=== PATIENT | male | born 1975 | race Caucasian/White ===

== ENCOUNTER 2018-02-21 10:35 | Observation (INO) | payer BC, OTHER ==
--- NOTE | 2018-02-21 10:51 | ED ---
General Adult HPI - General Chief complaint: Arrhythmia/Palpitations Stated complaint: AFIB Time Seen by Provider: 02/21/18 10:45 Source: patient, RN notes reviewed Mode of arrival: wheelchair Limitations: no limitations - History of Present Illness Initial comments: Patient is a pleasant 42-year-old male presenting to the emergency Department with palpitations. Onset of symptoms was around 4 AM. Patient felt his heart skipping going fast. Patient does have a history of similar symptoms previously associated with atrial fibrillation, last was around 1 year ago. Patient states symptoms did last for a couple hours however now have resolved. Patient only has some mild heaviness. Patient does admit to having some mild shortness of breath. No nausea. No diaphoresis. Patient is not on any medication at this time for A. fib. No leg pain or leg swelling. - Related Data Home Medications Medication Instructions Recorded Confirmed Ibuprofen [Motrin Ib] 400 mg PO Q6H PRN 02/21/18 02/21/18 Lansoprazole [Prevacid] 15 mg PO DAILY 02/21/18 02/21/18 Allergies Allergy/AdvReac Type Severity Reaction Status Date / Time No Known Allergies Allergy Verified 02/21/18 11:15 Review of Systems ROS Statement: Those systems with pertinent positive or pertinent negative responses have been documented in the HPI. ROS Other: All systems not noted in ROS Statement are negative. Constitutional: Denies: fever Eyes: Denies: eye pain ENT: Denies: ear pain Respiratory: Reports: dyspnea. Denies: cough Cardiovascular: Reports: chest pain, palpitations Endocrine: Reports: fatigue Gastrointestinal: Denies: abdominal pain, nausea Genitourinary: Denies: dysuria Musculoskeletal: Denies: back pain Skin: Denies: rash Neurological: Denies: weakness Past Medical History Past Medical History: Atrial Fibrillation, Asthma, GERD/Reflux, Pneumonia Additional Past Medical History / Comment(s): a-fib, ARTHRITIS, chronic back pain pinched nerves in neck History of Any Multi-Drug Resistant Organisms: None Reported Past Surgical History: Orthopedic Surgery Additional Past Surgical History / Comment(s): rt shoulder,lt knee Past Anesthesia/Blood Transfusion Reactions: No Reported Reaction Past Psychological History: No Psychological Hx Reported Smoking Status: Current every day smoker Past Alcohol Use History: Rare Past Drug Use History: None Reported - Past Family History Father Family Medical History: Diabetes Mellitus Additional Family Medical History / Comment(s): DAD IS 61 Mother Family Medical History: Unable to Obtain Additional Family Medical History / Comment(s): MOM IS 58 HX UNK General Exam Limitations: no limitations General appearance: alert, in no apparent distress Head exam: Present: atraumatic Eye exam: Present: normal appearance, PERRL ENT exam: Present: normal oropharynx Neck exam: Present: normal inspection Respiratory exam: Present: normal lung sounds bilaterally Cardiovascular Exam: Present: regular rate, normal rhythm Expanded Peripheral pulses: 2+: Radial (R), Radial (L), Posterior Tibialis (R), Posterior Tibialis (L) GI/Abdominal exam: Present: soft. Absent: tenderness Extremities exam: Present: normal inspection. Absent: pedal edema, calf tenderness Neurological exam: Present: alert Psychiatric exam: Present: normal affect, normal mood Skin exam: Present: normal color Course Vital Signs 02/21/18 02/21/18 02/21/18 10:36 10:55 12:12 Temperature 97.9 F 97.8 F Pulse Rate 87 66 Pulse Rate [ 75 Shear Setter ] Respiratory 20 18 Rate Blood Pressure 139/88 130/88 O2 Sat by Pulse 99 98 Oximetry 02/21/18 12:27 Temperature Pulse Rate 68 Pulse Rate [ Shear Setter ] Respiratory 18 Rate Blood Pressure 127/88 O2 Sat by Pulse 97 Oximetry EKG Findings - EKG Comments: EKG Findings:: Normal sinus rhythm 78. CT 166. QRS 82. QT 394. QTC 449. Normal axis. Normal QRS. No acute ST change. Medical Decision Making - Medical Decision Making Patient reevaluated and resting comfortably in bed. Patient still has some chest heaviness. Patient remains in normal sinus rhythm. Case was discussed in detail with Dr. Dumont, who will admit his patient, no consults at this time. - Lab Data Result diagrams: 02/21/18 10:45 02/21/18 10:45 Lab Results 02/21/18 02/21/18 02/21/18 Range/Units 10:45 10:45 10:45 WBC 5.3 (3.8-10.6) k/uL RBC 5.14 (4.30-5.90) m/uL Hgb 15.7 (13.0-17.5) gm/dL Hct 45.8 (39.0-53.0) % MCV 89.1 (80.0-100.0) fL MCH 30.5 (25.0-35.0) pg MCHC 34.2 (31.0-37.0) g/dL RDW 13.3 (11.5-15.5) % Plt Count 327 (150-450) k/uL Neutrophils % 64 % Lymphocytes % 28 % Monocytes % 5 % Eosinophils % 2 % Basophils % 0 % Neutrophils # 3.4 (1.3-7.7) k/uL Lymphocytes # 1.5 (1.0-4.8) k/uL Monocytes # 0.3 (0-1.0) k/uL Eosinophils # 0.1 (0-0.7) k/uL Basophils # 0.0 (0-0.2) k/uL PT (9.0-12.0) sec INR (<1.2) APTT (22.0-30.0) sec Sodium 137 (137-145) mmol/L Potassium 4.6 (3.5-5.1) mmol/L Chloride 105 (98-107) mmol/L Carbon Dioxide 25 (22-30) mmol/L Anion Gap 7 mmol/L BUN 12 (9-20) mg/dL Creatinine 0.79 (0.66-1.25) mg/dL Est GFR (CKD-EPI)AfAm >90 (>60 ml/min/1.73 sqM) Est GFR (CKD-EPI)NonAf >90 (>60 ml/min/1.73 sqM) Glucose 97 (74-99) mg/dL Calcium 9.1 (8.4-10.2) mg/dL Magnesium 1.9 (1.6-2.3) mg/dL Total Bilirubin 0.9 (0.2-1.3) mg/dL AST 39 (17-59) U/L ALT 36 (21-72) U/L Alkaline Phosphatase 51 (38-126) U/L Total Creatine Kinase 117 (55-170) U/L CK-MB (CK-2) 0.7 (0.0-2.4) ng/mL CK-MB (CK-2) Rel Index 0.6 Troponin I <0.012 (0.000-0.034) ng/mL Total Protein 6.1 L (6.3-8.2) g/dL Albumin 3.7 (3.5-5.0) g/dL 02/21/18 Range/Units 10:45 WBC (3.8-10.6) k/uL RBC (4.30-5.90) m/uL Hgb (13.0-17.5) gm/dL Hct (39.0-53.0) % MCV (80.0-100.0) fL MCH (25.0-35.0) pg MCHC (31.0-37.0) g/dL RDW (11.5-15.5) % Plt Count (150-450) k/uL Neutrophils % % Lymphocytes % % Monocytes % % Eosinophils % % Basophils % % Neutrophils # (1.3-7.7) k/uL Lymphocytes # (1.0-4.8) k/uL Monocytes # (0-1.0) k/uL Eosinophils # (0-0.7) k/uL Basophils # (0-0.2) k/uL PT 9.7 (9.0-12.0) sec INR 1.0 (<1.2) APTT 22.6 (22.0-30.0) sec Sodium (137-145) mmol/L Potassium (3.5-5.1) mmol/L Chloride (98-107) mmol/L Carbon Dioxide (22-30) mmol/L Anion Gap mmol/L BUN (9-20) mg/dL Creatinine (0.66-1.25) mg/dL Est GFR (CKD-EPI)AfAm (>60 ml/min/1.73 sqM) Est GFR (CKD-EPI)NonAf (>60 ml/min/1.73 sqM) Glucose (74-99) mg/dL Calcium (8.4-10.2) mg/dL Magnesium (1.6-2.3) mg/dL Total Bilirubin (0.2-1.3) mg/dL AST (17-59) U/L ALT (21-72) U/L Alkaline Phosphatase (38-126) U/L Total Creatine Kinase (55-170) U/L CK-MB (CK-2) (0.0-2.4) ng/mL CK-MB (CK-2) Rel Index Troponin I (0.000-0.034) ng/mL Total Protein (6.3-8.2) g/dL Albumin (3.5-5.0) g/dL - Radiology Data Radiology results: image reviewed (Chest x-ray shows no acute process.) Disposition Clinical Impression: Palpitations, Chest pain Disposition: ADMITTED IP TO THIS HOSP Is patient prescribed a controlled substance at d/c from ED?: No Referrals: Bjorn Dumont MD [Primary Care Provider] - 1-2 days Decision Time: 12:41
[2018-02-21 11:07] LABS: Basophils % (A) 0 %; Eosinophils # (A) 0.1 k/uL (0-0.7); Eosinophils % (A) 2 %; HCT 45.8 % (39.0-53.0); HGB 15.7 gm/dL (13.0-17.5); Lymphocytes # (A) 1.5 k/uL (1.0-4.8); Lymphocytes % (A) 28 %; MCH 30.5 pg (25.0-35.0); MCHC 34.2 g/dL (31.0-37.0); MCV 89.1 fL (80.0-100.0); Mean Platelet Volume 6.5; Monocytes # (A) 0.3 k/uL (0-1.0); Monocytes % (A) 5 %; Neutrophils # (A) 3.4 k/uL (1.3-7.7); Neutrophils % (A) 64 %; Platelet Count 327 k/uL (150-450); RBC 5.14 m/uL (4.30-5.90); RDW 13.3 % (11.5-15.5); WBC 5.3 k/uL (3.8-10.6)
[2018-02-21 11:14] LABS: Partial Thromboplastin Time 22.6 sec (22.0-30.0); Prothrombin Time 9.7 sec (9.0-12.0)
[2018-02-21 11:25] LABS: Albumin 3.7 g/dL (3.5-5.0); Anion Gap 7 mmol/L; Calcium 9.1 mg/dL (8.4-10.2); Carbon Dioxide 25 mmol/L (22-30); Chloride 105 mmol/L (98-107); Glucose 97 mg/dL (74-99); Sodium 137 mmol/L (137-145); Total Bilirubin 0.9 mg/dL (0.2-1.3); Total Protein 6.1 g/dL (6.3-8.2)
[2018-02-21 11:27] LABS: Blood Urea Nitrogen 12 mg/dL (9-20); Potassium 4.6 mmol/L (3.5-5.1)
[2018-02-21 11:28] LABS: ALT 36 U/L (21-72); AST 39 U/L (17-59); Alkaline Phosphatase 51 U/L (38-126); Magnesium 1.9 mg/dL (1.6-2.3)
--- NOTE | 2018-02-21 11:30 | XR ---
EXAMINATION TYPE: XR chest 2V DATE OF EXAM: 02/21/2018 COMPARISON: Prior chest 04/16/2014 HISTORY: Dysrhythmia TECHNIQUE: Frontal and lateral views of the chest are obtained. FINDINGS: There is no focal air space opacity, pleural effusion, or pneumothorax seen. The cardiac silhouette size is within normal limits. There are overlying cardiac leads. The osseous structures a re intact. IMPRESSION: No acute cardiopulmonary process.
[2018-02-21 11:31] LABS: Creatine Kinase 117 U/L (55-170)
[2018-02-21 11:44] LABS: Creatine Kinase MB 0.7 ng/mL (0.0-2.4); Troponin I <0.012 ng/mL (0.000-0.034)
[2018-02-21 12:13] VITALS: RESP 18; TEMP 97.8
[2018-02-21] MEDS ORDERED: NITROGLYCERIN SL TABS 0.4 MG TAB SUBLINGUAL PRN (12:41)
[2018-02-21] MEDS ORDERED: ASPIRIN 81 MG PO STA (12:41)
[2018-02-21 14:31] VITALS: BP 134/90; PULSE 61
[2018-02-21] MEDS ORDERED: NITROGLYCERIN OINT 1 INCH/GM PACKET TOPICAL SCH (18:00)
[2018-02-22] MEDS ORDERED: ASPIRIN 325 MG TAB PO SCH (09:00)
== END 2018-02-21 17:29 | disposition left against medical advice (07) ==
LOC: EC 10:35 → 3OBS 12:42
PROVIDERS: ADMIT Family Medicine; ATTEND Family Medicine
DX: R07.89 Other chest pain (principal); R00.2 Palpitations; K21.9 Gastro-esophageal reflux disease without esophagitis; J45.909 Unspecified asthma, uncomplicated; I48.91 Unspecified atrial fibrillation; G89.29 Other chronic pain; M54.9 Dorsalgia, unspecified; G58.8 Other specified mononeuropathies; M19.90 Unspecified osteoarthritis, unspecified site; F17.200 Nicotine dependence, unspecified, uncomplicated; Z79.899 Other long term (current) drug therapy; Z87.01 Personal history of pneumonia (recurrent); Z83.3 Family history of diabetes mellitus
CPT/HCPCS: 99285 ×2; 36415; 93005; 80053; 82550; 82553; 83735; 84484; 85025; 85610; 85730; 71046; G0378

== ENCOUNTER 2018-05-02 10:52 | Emergency (ER) | payer OTHER ==
[2018-05-02 11:09] VITALS: TEMP 98.4
--- NOTE | 2018-05-02 15:07 | ED ---
General Adult HPI - General Chief complaint: Abdominal Pain Stated complaint: hernia pain Time Seen by Provider: 05/02/18 12:45 Source: patient Mode of arrival: ambulatory Limitations: no limitations - History of Present Illness Initial comments: This is a 42-year-old male past medical history of atrial fibrillation, asthma, and left-sided hernia (pt unclear what type). Patient states that he was experiencing groin pain for the past year, he states that increases with coughing. Patient was consulted by Dr. whatley who scheduled surgery for March 07 of this year. Patient states he missed this appointment due to personal things and has not rescheduled. 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 He states he was concerning for something and present for evaluation. Patient states that the pain is very mild at this point he denies it at rest. He states there is no changes from his chronic pain for the past year he denies any nausea, vomiting, fever, upper abdominal pain, testicular pain, testicular swelling or changes. Remainder was negative. Patient. While on arrival, no signs of distress sitting complained bed. Vital signs within acceptable limits. - Related Data Home Medications Medication Instructions Recorded Confirmed Ibuprofen [Motrin Ib] 400 mg PO Q6H PRN 02/21/18 02/21/18 Lansoprazole [Prevacid] 15 mg PO DAILY 02/21/18 02/21/18 Allergies Allergy/AdvReac Type Severity Reaction Status Date / Time No Known Allergies Allergy Verified 05/02/18 11:09 Review of Systems ROS Statement: Those systems with pertinent positive or pertinent negative responses have been documented in the HPI. ROS Other: All systems not noted in ROS Statement are negative. Constitutional: Denies: fever, chills, night sweats Eyes: Denies: as per HPI, eye pain ENT: Denies: ear pain, throat pain Respiratory: Denies: cough, dyspnea, wheezes, hemoptysis, stridor Cardiovascular: Denies: chest pain, palpitations Endocrine: Denies: fatigue Gastrointestinal: Denies: abdominal pain, nausea, vomiting, diarrhea, constipation, hematemesis, melena Genitourinary: Reports: as per HPI. Denies: urgency, dysuria, frequency, hematuria, discharge, testicular pain, testicular mass Musculoskeletal: Denies: back pain Skin: Denies: rash, lesions, change in color Neurological: Denies: headache, weakness, numbness, paresthesias, confusion Past Medical History Past Medical History: Atrial Fibrillation, Asthma, GERD/Reflux, Pneumonia Additional Past Medical History / Comment(s): a-fib, ARTHRITIS, chronic back pain pinched nerves in neck History of Any Multi-Drug Resistant Organisms: None Reported Past Surgical History: Orthopedic Surgery Additional Past Surgical History / Comment(s): rt shoulder sx and bicep repair , lt knee arthroscopy Past Anesthesia/Blood Transfusion Reactions: No Reported Reaction Past Psychological History: No Psychological Hx Reported Smoking Status: Current every day smoker Past Alcohol Use History: Occasional Past Drug Use History: None Reported - Past Family History Father Family Medical History: Diabetes Mellitus Additional Family Medical History / Comment(s): DDD Mother Family Medical History: Unable to Obtain Additional Family Medical History / Comment(s): MOM IS 58 HX UNK General Exam - General Exam Comments Initial Comments: General: The patient is awake and alert, in no distress, and does not appear acutely ill. Eye: Pupils are equal, round and reactive to light, extra-ocular movements are intact. No nystagmus. There is normal conjunctiva bilaterally. No signs of icterus. Ears, nose, mouth and throat: There are moist mucous membranes and no oral lesions. Neck: The neck is supple, there is no tenderness or JVD. Cardiovascular: There is a regular rate and rhythm. No murmur, rub or gallop is appreciated. Respiratory: Lungs are clear to auscultation, respirations are non-labored, breath sounds are equal. No wheezes, stridor, rales, or rhonchi. Gastrointestinal: Soft, non-distended, non-tender abdomen without masses or organomegaly noted. There is no rebound or guarding present. No CVA tenderness. Bowel sounds are unremarkable. Patient admitted to mild tenderness in the left groin, there is no palpable mass, no palpable mass with coughing or straining increasing intra-abdominal pressure. Patient does not appear to be in discomfort. Examination of the wrist and testicles within normal limits, no malleus, there was no indirect or direct hernia palpated upon examination. Musculoskeletal: Normal ROM, no tenderness. Strength 5/5. Sensation intact. Femoral and radial pulses equal bilaterally 2+. Neurological: A&O x 3. CN II-XII intact, There are no obvious motor or sensory deficits. Coordination appears grossly intact. Speech is normal. Skin: Skin is warm and dry and no rashes or lesions are noted. Psychiatric: Cooperative, appropriate mood & affect, normal judgment. Limitations: no limitations exam: Present: normal inspection, vertical testicular lie, circumcision. Absent: testicular tenderness, urethral discharge, scrotal swelling External exam: Absent: erythema, swelling, lesions, lacerations, ecchymosis Course Vital Signs 05/02/18 05/02/18 11:07 15:23 Temperature 98.4 F 98.4 F Pulse Rate 108 H 87 Respiratory 20 18 Rate Blood Pressure 136/87 144/84 O2 Sat by Pulse 99 95 Oximetry Medical Decision Making - Medical Decision Making Patient appears comfortable, I have no suspicion at this time for strangulated hernia given hx pt symptoms, presentation, and PE findings. Patient admits to passing bowel movement, denies constipation. Patient denies any nausea, vomiting. Patient states that pain is consistent with the pain has been experiencing for the past year. At this time feel patient is stable for discharge with follow-up with Dr. Whatley. He is agreeable with discharge, he defers any additional imaging at this time. He states he would just like a letter sent to circuit court clerk stating that he was here and that is why he left. Patient states he left prior to getting on the stand. This was discussed with Dr. Jaiden Angelo prior to discharge agrees with assessment and plan. Patient discharged in stable condition Disposition Clinical Impression: Left groin pain Disposition: HOME SELF-CARE Condition: Good Instructions: Groin Pain (ED) Additional Instructions: Please use medication as discussed. Please follow-up with your surgeon Dr. Whatley, please see primary care provider in next 1-2 days. Please return to emergency room if the symptoms increase or worsen or for any other concerns. Is patient prescribed a controlled substance at d/c from ED?: No Referrals: Bjorn Dumont MD [Primary Care Provider] - 1-2 days Huan Whatley DO [Doctor of Osteopathic Medicine] - 1-2 days Time of Disposition: 15:07
[2018-05-02 15:27] VITALS: BP 144/84; PULSE 87; RESP 18
== END 2018-05-02 15:25 | disposition home or self-care (01) ==
LOC: EC 10:52
DX: R10.32 Left lower quadrant pain (principal); R05 Cough; K21.9 Gastro-esophageal reflux disease without esophagitis; F17.200 Nicotine dependence, unspecified, uncomplicated; Z79.899 Other long term (current) drug therapy
CPT/HCPCS: 99283